=== PATIENT | male | born 1945 | race Caucasian/White ===

== ENCOUNTER 2018-05-06 18:22 | Inpatient (IN) | payer MEDICARE, OTHER ==
[~2018-05-06] VITALS: Ht 175.3 cm; Wt 63.2 kg
[2018-05-06] MEDS ORDERED: LORazepam 2 MG/ML, 1ML ONE ×2 (18:51→21:47)
[2018-05-06] MEDS ORDERED: LORazepam 2 MG/ML, 1ML IVPush ONE ×2 (19:00→22:30)
[2018-05-06 19:07] LABS: ALANINE AMINOTRANSFERASE 35 U/L (12-78); ALBUMIN 3.1 g/dL (3.4-5.0); ANION GAP 5 mmol/L (5-15); CALCIUM 8.8 mg/dL (8.5-10.1); CHLORIDE 115 mmol/L (98-107); CREATININE 0.81 mg/dL (0.7-1.3)
[2018-05-06 19:09] LABS: ALKALINE PHOSPHATASE 74 U/L (45-117); BILIRUBIN,TOTAL 0.5 mg/dL (0.2-1.0); TOTAL PROTEIN 5.5 g/dL (6.4-8.2)
[2018-05-06 19:13] LABS: INTERNATIONAL NORMALIZED RATIO 1.09 (0.93-1.1); PROTHROMBIN TIME 11.2 Seconds (9.6-11.5)
[2018-05-06 19:30] LABS: MEAN CORPUSCULAR HEMOGLOBIN 32.3 pg (27.5-34.5); MEAN CORPUSCULAR HGB CONC 33.5 g/dL (33.2-36.2); MEAN CORPUSCULAR VOLUME 96.6 fL (81-97); MEAN PLATELET VOLUME 8.4 fL (7.4-10.4); PLATELET COUNT 170 x10^3/uL (130-400); RED BLOOD COUNT 4.03 x10^6/uL (4.38-5.82); RED CELL DISTRIBUTION WIDTH 15.1 % (9.4-14.8)
[2018-05-06 19:34] LABS: BASOPHILS # (AUTO) 0.04 x10^3/uL (0-0.1); BASOPHILS % (AUTO) 1 % (0-1); EOSINOPHILS # (AUTO) 0.07 x10^3/uL (0-0.4); EOSINOPHILS % (AUTO) 2 % (1-7); LYMPHOCYTES # (AUTO) 1.27 x10^3/uL (1-3.4); LYMPHOCYTES % (AUTO) 30 % (22-44); MD SCAN; MONOCYTES # (AUTO) 0.51 x10^3/uL (0.2-0.8); MONOCYTES % (AUTO) 12 % (2-9); NEUTROPHILS # (AUTO) 2.27 x10^3/uL (1.8-6.8); NEUTROPHILS % (AUTO) 55 % (42-75)
[2018-05-06] MEDS ORDERED: SODIUM CHLORIDE 0.9% 1,000ML IVBOLUS ONE (21:00)
[2018-05-06] MEDS ORDERED: ACETAMINOPHEN 325 MG TABLET PO PRN (22:00)
[2018-05-06] MEDS ORDERED: ONDANSETRON 2MG/ML, 2ML IVPush PRN (22:00)
[2018-05-06] MEDS ORDERED: BISACODYL 10 MG SUPP PR PRN (22:00)
[2018-05-06] MEDS ORDERED: POLYETHYLENE GLYCOL 17 GM PACKET PO PRN (22:00)
[2018-05-06 22:25] LABS: FOLATE LEVEL 19.6 ng/mL (3.1-17.5); THYROID STIMULATING HORMONE 1.42 mIU/L (0.358-3.740)
[2018-05-06] MEDS ORDERED: PLEASE ENTER ALLERGIES MC SCH (23:30)
[2018-05-06 23:46] LABS: CULTURE INDICATED? YES; MICROSCOPIC INDICATED
[2018-05-06] MEDS: DEXTROSE 5% 1,000 ML IV SCH (23:48)
[2018-05-07] MEDS ORDERED: LORazepam 2 MG/ML, 1ML IVPush ONE
[2018-05-07] MEDS ORDERED: LORazepam 1MG TABLET PO PRN (01:00)
[2018-05-07] MEDS: HALOPERIDOL 1 MG TABLET PO SCH ×6 (01:00→21:20)
[2018-05-07] MEDS: HEPARIN 5,000 UNITS/ML, 1ML SQ SCH ×3 (02:13→17:55)
[2018-05-07 02:20] VITALS: BP 98/62
[2018-05-07] MEDS ORDERED: HALO5TAB5 PO (02:31)
[2018-05-07] MEDS ORDERED: IBUP-11 PO (02:33)
[2018-05-07] MEDS ORDERED: MAG360OR26 PO (04:57)
[2018-05-07] MEDS ORDERED: MELA10TA PO (04:57)
[2018-05-07] MEDS ORDERED: ACET325T14 PO (04:57)
[2018-05-07] MEDS ORDERED: PUMP160C2 PO (04:57)
[2018-05-07] MEDS ORDERED: LORA1TAB PO (04:57)
[2018-05-07] MEDS ORDERED: DIVA125C PO (04:57)
[2018-05-07] MEDS ORDERED: ESCI20TA10 PO (04:57)
[2018-05-07] MEDS ORDERED: [UNRECOGNIZED DRUG - OTHER] PO (04:57)
[2018-05-07] MEDS ORDERED: MAGN400O7 PO (04:57)
[2018-05-07 05:39] LABS: BASOPHILS # (AUTO) 0.02 x10^3/uL (0-0.1); BASOPHILS % (AUTO) 1 % (0-1); EOSINOPHILS # (AUTO) 0.07 x10^3/uL (0-0.4); EOSINOPHILS % (AUTO) 2 % (1-7); LYMPHOCYTES # (AUTO) 1.52 x10^3/uL (1-3.4); LYMPHOCYTES % (AUTO) 39 % (22-44); MD NO; MEAN CORPUSCULAR HEMOGLOBIN 32.5 pg (27.5-34.5); MEAN CORPUSCULAR HGB CONC 33.8 g/dL (33.2-36.2); MEAN CORPUSCULAR VOLUME 96.1 fL (81-97); MEAN PLATELET VOLUME 8.2 fL (7.4-10.4); MONOCYTES # (AUTO) 0.42 x10^3/uL (0.2-0.8); MONOCYTES % (AUTO) 11 % (2-9); NEUTROPHILS # (AUTO) 1.87 x10^3/uL (1.8-6.8); NEUTROPHILS % (AUTO) 48 % (42-75); PLATELET COUNT 167 x10^3/uL (130-400); RED BLOOD COUNT 4.04 x10^6/uL (4.38-5.82); RED CELL DISTRIBUTION WIDTH 14.8 % (9.4-14.8)
[2018-05-07 05:47] LABS: ALANINE AMINOTRANSFERASE 34 U/L (12-78); ANION GAP 6 mmol/L (5-15); CALCIUM 8.1 mg/dL (8.5-10.1); CHLORIDE 114 mmol/L (98-107); CREATININE 0.52 mg/dL (0.7-1.3)
[2018-05-07 05:50] LABS: ALKALINE PHOSPHATASE 63 U/L (45-117); BILIRUBIN,TOTAL 0.8 mg/dL (0.2-1.0); TOTAL PROTEIN 5.4 g/dL (6.4-8.2)
[2018-05-07 07:10] VITALS: BP 126/66
[2018-05-07] MEDS: SENNA/DOCUSATE TABLET PO SCH (11:48)
[2018-05-07] MEDS: DIVALPROEX 125 MG CAP.SPRINK PO SCH ×3 (11:48→21:20)
[2018-05-07] MEDS: DEXTROSE 5% 1,000 ML IV SCH (11:55)
[2018-05-07 13:51] VITALS: BP 121/69
[2018-05-07 19:00] VITALS: BP 144/78
[2018-05-07] MEDS: MELATONIN 5 MG TABLET PO SCH (21:20)
[2018-05-08 01:04] VITALS: BP 137/73
[2018-05-08] MEDS: HEPARIN 5,000 UNITS/ML, 1ML SQ SCH ×3 (02:56→20:29)
[2018-05-08] MEDS: DEXTROSE 5% 1,000 ML IV SCH ×2 (04:19→21:00)
[2018-05-08 06:02] LABS: BASOPHILS # (AUTO) 0.05 x10^3/uL (0-0.1); BASOPHILS % (AUTO) 1 % (0-1); EOSINOPHILS # (AUTO) 0.03 x10^3/uL (0-0.4); EOSINOPHILS % (AUTO) 0 % (1-7); LYMPHOCYTES # (AUTO) 1.46 x10^3/uL (1-3.4); LYMPHOCYTES % (AUTO) 24 % (22-44); MD NO; MEAN CORPUSCULAR HEMOGLOBIN 32.6 pg (27.5-34.5); MEAN CORPUSCULAR HGB CONC 34.1 g/dL (33.2-36.2); MEAN CORPUSCULAR VOLUME 95.5 fL (81-97); MEAN PLATELET VOLUME 8.1 fL (7.4-10.4); MONOCYTES # (AUTO) 0.71 x10^3/uL (0.2-0.8); MONOCYTES % (AUTO) 12 % (2-9); NEUTROPHILS % (AUTO) 64 % (42-75); PLATELET COUNT 177 x10^3/uL (130-400); RED BLOOD COUNT 4.52 x10^6/uL (4.38-5.82); RED CELL DISTRIBUTION WIDTH 14.3 % (9.4-14.8)
[2018-05-08 06:13] LABS: ANION GAP 7 mmol/L (5-15); CALCIUM 8.6 mg/dL (8.5-10.1); CHLORIDE 107 mmol/L (98-107)
[2018-05-08 06:15] LABS: CREATININE 0.52 mg/dL (0.7-1.3)
[2018-05-08 07:49] VITALS: BP 154/85
[2018-05-08] MEDS: SENNA/DOCUSATE TABLET PO SCH (09:29)
[2018-05-08] MEDS: DIVALPROEX 125 MG CAP.SPRINK PO SCH ×3 (09:29→21:00)
[2018-05-08] MEDS: HALOPERIDOL 1 MG TABLET PO SCH ×3 (09:29→21:00)
[2018-05-08] MEDS ORDERED: LORazepam 2 MG/ML, 1ML IVPush SCH (10:30)
[2018-05-08 12:47] VITALS: BP 122/76
[2018-05-08] MEDS ORDERED: GADOBUTROL 7.5 MMOL/7.5 ML PFS ONE (12:54)
[2018-05-08 19:26] VITALS: BP 99/56
[2018-05-08] MEDS: MELATONIN 5 MG TABLET PO SCH (21:00)
[2018-05-09] MEDS: HALOPERIDOL 1 MG TABLET PO PRN (01:35)
[2018-05-09] MEDS: DIVALPROEX 125 MG CAP.SPRINK PO SCH ×4 (01:53→21:48)
[2018-05-09 02:49] VITALS: BP 103/52
[2018-05-09] MEDS: HEPARIN 5,000 UNITS/ML, 1ML SQ SCH ×3 (04:29→21:47)
[2018-05-09 08:48] VITALS: BP 102/66
[2018-05-09] MEDS: SENNA/DOCUSATE TABLET PO SCH (10:29)
[2018-05-09] MEDS: HALOPERIDOL 1 MG TABLET PO SCH ×3 (10:29→21:47)
[2018-05-09 13:58] VITALS: BP 107/67
[2018-05-09] MEDS: DEXTROSE 5% 1,000 ML IV SCH (16:00)
[2018-05-09 18:32] VITALS: BP 110/68
[2018-05-09] MEDS: MELATONIN 5 MG TABLET PO SCH (21:47)
[2018-05-10 01:48] VITALS: BP 103/58
[2018-05-10] MEDS: HEPARIN 5,000 UNITS/ML, 1ML SQ SCH ×3 (04:01→19:48)
[2018-05-10] MEDS: DEXTROSE 5% 1,000 ML IV SCH (04:05)
[2018-05-10 08:09] VITALS: BP 109/69
[2018-05-10] MEDS: SENNA/DOCUSATE TABLET PO SCH (09:20)
[2018-05-10] MEDS: DIVALPROEX 125 MG CAP.SPRINK PO SCH ×3 (09:20→19:48)
[2018-05-10] MEDS: HALOPERIDOL 1 MG TABLET PO SCH ×3 (09:21→19:48)
[2018-05-10] MEDS: D5%-0.45NACL+KCL 20MEQ 1,000 ML IV SCH (10:29)
[2018-05-10 14:00] VITALS: BP 110/64
[2018-05-10 18:48] VITALS: BP 106/64
[2018-05-10] MEDS: MELATONIN 5 MG TABLET PO SCH (19:49)
[2018-05-10] MEDS: HALOPERIDOL 1 MG TABLET PO PRN (22:49)
[2018-05-11 02:00] VITALS: BP 110/68
[2018-05-11] MEDS: HEPARIN 5,000 UNITS/ML, 1ML SQ SCH ×2 (04:00→12:14)
[2018-05-11] MEDS: D5%-0.45NACL+KCL 20MEQ 1,000 ML IV SCH (05:10)
[2018-05-11 05:42] LABS: MEAN CORPUSCULAR HEMOGLOBIN 32.2 pg (27.5-34.5); MEAN CORPUSCULAR HGB CONC 33.7 g/dL (33.2-36.2); MEAN CORPUSCULAR VOLUME 95.8 fL (81-97); MEAN PLATELET VOLUME 8.5 fL (7.4-10.4); PLATELET COUNT 154 x10^3/uL (130-400); RED BLOOD COUNT 4.76 x10^6/uL (4.38-5.82); RED CELL DISTRIBUTION WIDTH 14.3 % (9.4-14.8)
[2018-05-11 05:47] LABS: CHLORIDE 104 mmol/L (98-107)
[2018-05-11 05:56] LABS: ANION GAP 8 mmol/L (5-15); CALCIUM 8.2 mg/dL (8.5-10.1); CREATININE 0.59 mg/dL (0.7-1.3)
[2018-05-11 06:00] LABS: BASOPHILS % (AUTO) 0 % (0-1); EOSINOPHILS % (AUTO) 0 % (1-7); LYMPHOCYTES # (AUTO) 0.28 x10^3/uL (1-3.4); LYMPHOCYTES % (AUTO) 4 % (22-44); MD SCAN; MONOCYTES # (AUTO) 0.67 x10^3/uL (0.2-0.8); MONOCYTES % (AUTO) 9 % (2-9); NEUTROPHILS % (AUTO) 88 % (42-75)
[2018-05-11 07:38] VITALS: BP 129/75
[2018-05-11] MEDS ORDERED: POTASSIUM CHLORIDE 20 MEQ TAB.ER.PRT PO ONE (08:00)
[2018-05-11] MEDS: HALOPERIDOL 1 MG TABLET PO SCH (08:08)
[2018-05-11] MEDS: DIVALPROEX 125 MG CAP.SPRINK PO SCH (08:08)
[2018-05-11] MEDS: SENNA/DOCUSATE TABLET PO SCH (08:09)
[2018-05-11 12:09] VITALS: BP 109/64
== END 2018-05-11 13:07 | DRG 884 ==
LOC: ED 22:17 → EDIP 22:22 → 3NE 23:14
PROVIDERS: ADMIT Internal Medicine; ATTEND Internal Medicine
DX: F03.91 Unspecified dementia, unspecified severity, with behavioral disturbance (principal); E87.0 Hyperosmolality and hypernatremia; E44.0 Moderate protein-calorie malnutrition; R41.0 Disorientation, unspecified; D64.9 Anemia, unspecified; Z68.20 Body mass index [BMI] 20.0-20.9, adult; E86.9 Volume depletion, unspecified; N40.0 Benign prostatic hyperplasia without lower urinary tract symptoms; Z66 Do not resuscitate; Z78.1 Physical restraint status; Z87.891 Personal history of nicotine dependence; H91.90 Unspecified hearing loss, unspecified ear
CPT/HCPCS: 36415; 70450; 70553; 71045; 80048; 80053; 81001; 82140; 82607; 82746; 84443; 85025; 85610; 85730; 87086; 93005; 96360; A9585; J1644; J7070; J2060; J3480; J7030

== ENCOUNTER 2018-05-11 13:02 | Inpatient (IN) | payer MEDICARE, OTHER ==
[~2018-05-11] VITALS: Ht 177.8 cm; Wt 72.0 kg
[~2018-05-11 13:02] MED LIST: ACET325T14 PO; DIVA125C PO; ESCI20TA10 PO; HALO5TAB5 PO; IBUP-11 PO; LORA1TAB PO; MAG360OR26 PO; MAGN400O7 PO; MELA10TA PO; PUMP160C2 PO; [UNRECOGNIZED DRUG - OTHER] PO
[2018-05-11 15:06] VITALS: BP 104/65
[2018-05-11] MEDS ORDERED: LORazepam 1MG TABLET PO PRN (16:30)
[2018-05-11] MEDS ORDERED: ACETAMINOPHEN 325 MG TABLET PO PRN ×2 (16:30→20:00)
[2018-05-11] MEDS ORDERED: DOCUSATE 100 MG CAPSULE PO PRN (16:30)
[2018-05-11 18:12] LABS: FOLATE LEVEL 10.3 ng/mL (3.1-17.5); FREE T4 (FREE THYROXINE) 1.26 ng/dL (0.76-1.46); THYROID STIMULATING HORMONE 1.49 mIU/L (0.358-3.740)
[2018-05-11 18:57] VITALS: BP 94/57
[2018-05-11 19:30] LABS: MEAN CORPUSCULAR HGB CONC 33.8 g/dL (33.2-36.2); MEAN CORPUSCULAR VOLUME 97.6 fL (81-97); MEAN PLATELET VOLUME 8.6 fL (7.4-10.4); PLATELET COUNT 163 x10^3/uL (130-400); RED BLOOD COUNT 4.21 x10^6/uL (4.38-5.82); RED CELL DISTRIBUTION WIDTH 13.9 % (9.4-14.8)
[2018-05-11] MEDS ORDERED: SODIUM CHLORIDE 0.9% 1,000 ML IV SCH (19:45)
[2018-05-11 19:49] LABS: MD YES
[2018-05-11 19:50] LABS: BAND#(MANUAL) 0.85 x10^3/uL; BANDS%(MANUAL) 9 % (0-7); LYMPH#(MANUAL) 1.32 x10^3/uL (1-3.4); LYMPHS% (MANUAL) 14 % (22-44); MONOS#(MANUAL) 0.28 x10^3/uL (0.3-2.7); MONOS% (MANUAL) 3 % (2-9); SEG#(MANUAL) 6.96 x10^3/uL (1.8-6.8); SEGS% (MANUAL) 74 % (42-75)
[2018-05-11 19:51] LABS: <PLATELET ESTIMATE> ADEQUATE; <PLT MORPHOLOGY> NORMAL PLT MORPH; <RBC MORPHOLOGY> NORMAL
[2018-05-11] MEDS ORDERED: DEXTROSE 50%, 50ML SYRINGE IVPush PRN (20:00)
[2018-05-11] MEDS ORDERED: PHARMACY MAY ADJ FOR RENAL FX MC PRN (20:00)
[2018-05-11] MEDS ORDERED: GLUCAGON 1 MG IM PRN (20:00)
[2018-05-11] MEDS ORDERED: PIPERACILLIN/TAZO/PMX 4.5GM 100 ML IVPB SCH (20:00)
[2018-05-11] MEDS ORDERED: VANCOMYCIN PER PHARMACY MC SCH (20:00)
[2018-05-11] MEDS ORDERED: SODIUM CHLORIDE 0.9% 1,000ML IV ONE (20:00)
[2018-05-11] MEDS ORDERED: PHARMACY MAY ADJ FOR RENAL FX MC SCH (20:00)
[2018-05-11] MEDS ORDERED: DEXTROSE 4 GM TAB.CHEW PO PRN (20:00)
[2018-05-11] MEDS ORDERED: HEPARIN 5,000 UNITS/ML, 1ML SQ SCH (20:00)
[2018-05-11] MEDS ORDERED: PHARMACOKINETIC CONSULTATION MC ONE (20:30)
[2018-05-11] MEDS ORDERED: PHARMACOKINETIC MONITORING MC PRN (20:30)
[2018-05-11] MEDS ORDERED: VANCOMYCIN 1,500 MG in SODIUM CHLORIDE 0.9% 250 ML IV ONE (20:30)
[2018-05-11 20:53] LABS: ALANINE AMINOTRANSFERASE 41 U/L (12-78); ALBUMIN 2.3 g/dL (3.4-5.0); ANION GAP 9 mmol/L (5-15); CALCIUM 8.4 mg/dL (8.5-10.1); CHLORIDE 106 mmol/L (98-107); CREATININE 0.65 mg/dL (0.7-1.3)
[2018-05-11 20:56] LABS: ALKALINE PHOSPHATASE 55 U/L (45-117); BILIRUBIN,TOTAL 1.7 mg/dL (0.2-1.0); TOTAL PROTEIN 5.4 g/dL (6.4-8.2)
[2018-05-11] MEDS ORDERED: SODIUM CHLORIDE FLUSH 10ML SYR IVF SCH ×2 (21:00)
[2018-05-11] MEDS ORDERED: VANCOMYCIN 1,500 MG in SODIUM CHLORIDE 0.9% 250 ML IV SCH (21:00)
== END 2018-05-11 20:46 | DRG 871 ==
LOC: 3E 13:25
PROVIDERS: ADMIT Counselor Mental Health; ATTEND Counselor Mental Health
DX: A41.9 Sepsis, unspecified organism (principal); J18.9 Pneumonia, unspecified organism; Z66 Do not resuscitate; Z51.5 Encounter for palliative care; F03.90 Unspecified dementia, unspecified severity, without behavioral disturbance, psychotic disturbance, mood disturbance, and anxiety; N40.0 Benign prostatic hyperplasia without lower urinary tract symptoms; Z87.891 Personal history of nicotine dependence; Z81.8 Family history of other mental and behavioral disorders
CPT/HCPCS: 36415; 36600; 71045; 80053; 82140; 82607; 82746; 82803; 82962; 83605; 83735; 84145; 84439; 84443; 85025; 86592; 87040

== ENCOUNTER 2018-05-11 22:27 | Inpatient (IN) | payer MEDICARE, OTHER ==
[~2018-05-11] VITALS: Ht 175.3 cm; Wt 68.5 kg
[2018-05-11] MEDS ORDERED: GLUCAGON 1 MG IM PRN (23:30)
[2018-05-11] MEDS: SODIUM CHLORIDE FLUSH 10ML SYR IVF SCH (23:30)
[2018-05-11] MEDS ORDERED: SODIUM CHLORIDE 0.9% 1,000 ML IV SCH (23:30)
[2018-05-11] MEDS ORDERED: DEXTROSE 50%, 50ML SYRINGE IVPush PRN (23:30)
[2018-05-11] MEDS: HEPARIN 5,000 UNITS/ML, 1ML SQ SCH (23:30)
[2018-05-11] MEDS ORDERED: DEXTROSE 4 GM TAB.CHEW PO PRN (23:30)
[2018-05-11] MEDS ORDERED: ACETAMINOPHEN 325 MG TABLET PO PRN (23:30)
[2018-05-11] MEDS ORDERED: VANCOMYCIN PER PHARMACY MC PRN (23:30)
[2018-05-11] MEDS ORDERED: NEED HEIGHT AND WEIGHT FOR VANCO DOSING MC SCH (23:45)
[2018-05-12] MEDS ORDERED: VANCOMYCIN 1,400 MG in SODIUM CHLORIDE 0.9% 250 ML IV SCH (01:00)
[2018-05-12] MEDS ORDERED: PHARMACOKINETIC CONSULTATION MC ONE (01:00)
[2018-05-12] MEDS ORDERED: PHARMACOKINETIC MONITORING MC PRN (01:00)
[2018-05-12 03:34] VITALS: BP 113/64
[2018-05-12] MEDS: PIPERACILLIN/TAZO/PMX 3.375GM 50 ML IV SCH ×2 (04:58→08:45)
[2018-05-12 06:56] VITALS: BP 102/62
[2018-05-12 07:43] LABS: MICROSCOPIC INDICATED
[2018-05-12] MEDS: HEPARIN 5,000 UNITS/ML, 1ML SQ SCH (08:44)
[2018-05-12] MEDS: SODIUM CHLORIDE FLUSH 10ML SYR IVF SCH ×2 (09:00→14:09)
[2018-05-12 13:13] VITALS: BP 95/42
[2018-05-12] MEDS ORDERED: morphine SULFATE 10 MG/ML, 1ML IVPush PRN (13:30)
[2018-05-12] MEDS: LORazepam 2 MG/ML, 1ML IVPush PRN (14:03)
[2018-05-12] MEDS ORDERED: HALOPERIDOL 1 MG TABLET PO PRN (16:30)
[2018-05-12 18:29] VITALS: BP 106/66
[2018-05-13 01:55] VITALS: BP 122/74
[2018-05-13 05:35] LABS: BASOPHILS # (AUTO) 0.01 x10^3/uL (0-0.1); BASOPHILS % (AUTO) 0 % (0-1); EOSINOPHILS # (AUTO) 0.02 x10^3/uL (0-0.4); EOSINOPHILS % (AUTO) 0 % (1-7); LYMPHOCYTES # (AUTO) 0.73 x10^3/uL (1-3.4); LYMPHOCYTES % (AUTO) 10 % (22-44); MD NO; MEAN CORPUSCULAR HEMOGLOBIN 32.2 pg (27.5-34.5); MEAN CORPUSCULAR HGB CONC 33.4 g/dL (33.2-36.2); MEAN CORPUSCULAR VOLUME 96.3 fL (81-97); MEAN PLATELET VOLUME 8.7 fL (7.4-10.4); MONOCYTES # (AUTO) 0.84 x10^3/uL (0.2-0.8); MONOCYTES % (AUTO) 11 % (2-9); NEUTROPHILS # (AUTO) 5.75 x10^3/uL (1.8-6.8); NEUTROPHILS % (AUTO) 78 % (42-75); PLATELET COUNT 176 x10^3/uL (130-400); RED BLOOD COUNT 3.77 x10^6/uL (4.38-5.82); RED CELL DISTRIBUTION WIDTH 14.3 % (9.4-14.8)
[2018-05-13 05:47] LABS: ALANINE AMINOTRANSFERASE 33 U/L (12-78); ALBUMIN 1.9 g/dL (3.4-5.0); ANION GAP 7 mmol/L (5-15); CALCIUM 8.4 mg/dL (8.5-10.1); CHLORIDE 112 mmol/L (98-107)
[2018-05-13 05:49] LABS: ALKALINE PHOSPHATASE 56 U/L (45-117); BILIRUBIN,TOTAL 1.1 mg/dL (0.2-1.0); TOTAL PROTEIN 5.2 g/dL (6.4-8.2)
[2018-05-13 07:05] VITALS: BP 129/77
[2018-05-13] MEDS ORDERED: SCOPOLAMINE PATCH, 1.5MG PATCH.TD72 TD ONE (08:00)
[2018-05-13] MEDS: LORazepam 2 MG/ML, 1ML IVPush PRN ×2 (08:52→13:45)
[2018-05-13] MEDS: SODIUM CHLORIDE FLUSH 10ML SYR IVF SCH (08:59)
[2018-05-13 12:32] VITALS: BP 131/75
== END 2018-05-13 15:07 | disposition hospice, inpatient (51) | DRG 871 ==
LOC: 3NE 22:27
PROVIDERS: ADMIT Family Medicine; ATTEND Family Medicine
PROC: 0T9B70Z Drainage of Bladder with Drainage Device, Via Natural or Artificial Opening (ICD-10-PCS; principal; 2018-05-12)
DX: A41.9 Sepsis, unspecified organism (principal); J69.0 Pneumonitis due to inhalation of food and vomit; G93.40 Encephalopathy, unspecified; E44.0 Moderate protein-calorie malnutrition; N39.0 Urinary tract infection, site not specified; F03.91 Unspecified dementia, unspecified severity, with behavioral disturbance; R17 Unspecified jaundice; B96.89 Other specified bacterial agents as the cause of diseases classified elsewhere; R31.9 Hematuria, unspecified; R80.9 Proteinuria, unspecified; N40.0 Benign prostatic hyperplasia without lower urinary tract symptoms; Z87.891 Personal history of nicotine dependence; Z80.42 Family history of malignant neoplasm of prostate; Z68.22 Body mass index [BMI] 22.0-22.9, adult
CPT/HCPCS: 36415; 74230; 80053; 81001; 85025; 87040; 87077; 87086; 87186; 99285; J1644; J2543; J3370; J2060; J2270; J7030; J7050